=== PATIENT | female | born 1995 | race Caucasian/White ===

== ENCOUNTER 2018-07-25 19:15 | Emergency (ER) | payer BC ==
[2018-07-25 19:36] VITALS: BMI 21.9
[2018-07-25] MEDS ORDERED: ACETAMINOPHEN 500 MG TABLET (FP) PO ONE (20:14)
--- NOTE | 2018-07-25 20:14 | PDOC ---
History of Present Illness - General Chief Complaint: Cold Symptoms Stated Complaint: Cold Symptoms Time Seen by Provider: 07/25/18 20:13 History Source: Patient Exam Limitations: No Limitations - History of Present Illness Initial Comments: 07/25/18 20:32 HISTORY OF PRESENT ILLNESS: This is a 23-year-old woman without significant medical history of presents emergency departments with 1 day of fevers, myalgias , chills, sore throats, cough, nasal congestion. Patient is an employee at the [employer]. She also states her mother is an employee at this [employer] and has recently been diagnosed with influenza. No recent travel. PAST MEDICAL HISTORY: Denies past medical history SURGICAL HISTORY: Denies ALLERGIES: No known drug allergies REVIEW OF SYSTEMS General/Constitutional: +fever/chills. Denies weakness, weight change. HEENT: Denies change in vision. Denies ear pain or discharge. +sore throat. Cardiovascular: Denies chest pain or shortness of breath. Respiratory: Moist productive cough. No wheezing, or hemoptysis. Gastrointestinal: Denies nausea, vomiting, diarrhea or constipation. Denies rectal bleeding. Genitourinary: Denies dysuria, frequency, or change in urination. Musculoskeletal: Denies joint or muscle swelling. Denies neck or back pain. + myalgias Skin and breasts: Denies rash or easy bruising. Neurologic: Denies headache, vertigo, loss of consciousness, or loss of sensation. Psychiatric: Denies depression or anxiety. Endocrine: Denies increased thirst. Denies abnormal weight change. Hematologic/Lymphatic: Denies anemia, easy bleeding, or history of blood clots. Allergic/Immunologic: Denies hives or skin allergy. Denies latex allergy. PHYSICAL EXAM General Appearance: Well-appearing, appropriately dressed. No apparent distress , no intoxication. HEENT: EOMI, PERRLA, normal ENT inspection, normal voice, TMs normal, pharynx mildly erythematous. No conjunctival pallor. No photophobia, scleral icterus. Neck: Supple. Trachea midline. No tenderness, rigidity, carotid bruit, stridor , lymphadenopathy, or thyromegaly. Respiratory/Chest: Lungs CTAB. No shortness of breath, chest tenderness, respiratory distress, accessory muscle use. No crackles, rales, rhonchi, stridor , wheezing, dullness Cardiovascular: RRR. S1, S2. No JVD, murmur, bradycardia, tachycardia. Vascular Pulses: Dorsalis-Pedis (R): 2+, Dorsalis-Pedis (L): 2+ Gastrointestinal/Abdominal: Normal bowel sounds. Abdomen soft, non-distended. No tenderness or rebound tenderness. No organomegaly, pulsatile mass, guarding, hernia, hepatomegaly, splenomegaly. Lymphatic: No adenopathy, tenderness. Musculoskeletal/Extremities: Normal inspection. FROM of all extremities, normal capillary refill. Pelvis Stable. No CVA tenderness. No tenderness to extremities, pedal edema, swelling, erythema or deformity. Integumentary: Appropriate color, dry, warm. 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 Fully oriented, alert. Appropriate mood/affect. Motor strength 5/5. No appreciable EOM palsy, facial droop or sensory deficit. Past History - Past Medical History Allergies/Adverse Reactions: Allergies Allergy/AdvReac Type Severity Reaction Status Date / Time No Known Allergies Allergy Verified 07/25/18 19:36 Home Medications: Ambulatory Orders NK [No Known Home Medication] 07/25/18 COPD: No - Immunization History Immunization Up to Date: Yes - Suicide/Smoking/Psychosocial Hx Smoking History: Never smoked Hx Alcohol Use: No Substance Use Type: None *Physical Exam - Vital Signs Last Vital Signs Temp Pulse Resp BP Pulse Ox 102.5 F H 136 H 18 124/70 99 07/25/18 19:33 07/25/18 19:33 07/25/18 19:33 07/25/18 19:33 07/25/18 19:33 Medical Decision Making - Medical Decision Making 07/25/18 20:38 A/P: 23-year-old female 2 days of upper respiratory symptoms Influenza testing given sick contacts with influenza Tylenol 975 mg orally Reassess 07/25/18 20:48 Influenza testing is negative. 07/25/18 21:00 Reevaluation of vital signs prior to discharge reveals a heart rate of 234. Patient brought to the main ED for further evaluation. Sign out given to Joaquin Ireland for continued evaluation. *DC/Admit/Observation/Transfer - Discharge Dispostion Decision to Admit order: No - Referrals - Patient Instructions Additional Instructions: Rest, drink lots of fluids: Teas, water, soups, Pedialyte Saltwater gargles Steamy showers/seem to face break up mucus Avoid contact with others until fevers and cough resolved Lots of handwashing and good hygiene Continue [id number] medications for symptomatic relief Tylenol or Motrin for fever and pain Followup with private physician in one to 2 days as needed Return to emergency department for worsened symptoms, fevers, dehydration - Post Discharge Activity
[2018-07-25] MEDS ORDERED: ACETAMINOPHEN 325 MG TABLET (FP) ONE ×2 (20:16→21:41)
[2018-07-25] MEDS ORDERED: SODIUM CHLORIDE 0.9% 500 ML INFUS.BAG IV ONE (21:10)
--- NOTE | 2018-07-25 21:13 | PDOC ---
History of Present Illness - General Chief Complaint: Cold Symptoms Stated Complaint: Cold Symptoms Time Seen by Provider: 07/25/18 20:13 History Source: Patient Exam Limitations: No Limitations - History of Present Illness Initial Comments: 07/25/18 21:09 Patient's care is assumed from Florentino Gustafson when the patient has an onset of palpitations with HR measured up to 247 (on monitor and verified by palpation by JALIL Gustafson). The patient is a 23 YOF who p/w fever, chills, generalized malaise , and body aches in the setting of exposure to her mother who is known to be influenza positive. 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 She was treated in [facility], influenza swab was negative, and was given Tylenol. She began feeling palpitations about 10 minutes prior to being transferred back to the main ED here. She has never had these palpitations before. They have since resolved. Past History - Past Medical History Allergies/Adverse Reactions: Allergies Allergy/AdvReac Type Severity Reaction Status Date / Time No Known Allergies Allergy Verified 07/25/18 19:36 Home Medications: Ambulatory Orders NK [No Known Home Medication] 07/25/18 COPD: No - Immunization History Immunization Up to Date: Yes - Suicide/Smoking/Psychosocial Hx Smoking History: Never smoked Hx Alcohol Use: No Substance Use Type: None Review of Systems - Review of Systems Able to Perform ROS?: Yes Comments:: 07/25/18 21:19 GEN: fever, chills, generalized weakness, malaise, no unintentional weight change, loss of appetite, or difficulty sleeping HEENT: no ear pain, congestion, sore throat, rhinorrhea, nosebleed, vision change, or eye pain CV: palpitations, no chest pain, syncope, or exercise intolerance RESP: intermittent cough, no wheezing, or SOB GI: no nausea, vomiting, diarrhea, constipation, black/bloody stool, abdominal pain, or appetite change : no dysuria, hematuria, frequency, incontinence, retention, pruritis, bleeding, or discharge MSK: weakness, no joint swelling, limping, joint pain, or muscle pain NEURO: no headaches, seizures, or head trauma PSYCH: no insomnia, behavior change, or substance use SKIN: no jaundice, rashes, cuts, bruises, scars, or lesions *Physical Exam - Vital Signs Last Vital Signs Temp Pulse Resp BP Pulse Ox 98.7 F 247 H 18 124/70 99 07/25/18 20:57 07/25/18 20:57 07/25/18 19:33 07/25/18 19:33 07/25/18 19:33 07/25/18 21:10 GENERAL: healthy and fit and well-appearing young adult female in scrubs and with RN badge, nourished, A/Ox4, speaking in full sentences, answers questions appropriately, slightly uncomfortable appearing HEENT: PERRLA, EOMI, moist mucous membranes, no posterior pharyngeal erythema, no tonsillar swelling or exudates, no cervical lymphadenopathy NECK: No midline ttp, no spinal stepoff or deformity, full ROM, supple CARDIOVASCULAR: Rapid regular rate, HR 122 at the time of my exam, normal S1S2, no MGR, radial and DP pulses 2+ and symmetric, capillary refill <2 seconds, extremities warm and well-perfused LUNGS/RESPIRATORY: No respiratory distress, normal and symmetric chest movements during respirations, lungs CTA bilaterally, equal breath sounds, no cyanosis, no nail clubbing GI/ABDOMEN: Normal symmetric appearance, normoactive bowel sounds, soft, no tenderness to palpation, no midline pulsatile masses, no palpated organomegaly : No CVA tenderness, normal external appearance, no lesions BACK: No midline ttp or stepoff or deformity of thoracic or lumbar spine EXTREMITIES: distal pulses 2+, warm and well-perfused, no LE edema SKIN: Warm and dry, no pallor, no jaundice, no bruising, no rash, no skin breakdown, no cuts, no lesions NEUROLOGICAL: GCS 15, CN II-XII grossly intact, ambulating with normal gait, moving all extremities, 5/5 strength proximally and distally, no facial droop, no decreased sensation Heart Score/ECG Review #1 07/25/18 21:16 Sinus tachycardia, rate of 116, poor baseline but appears there is isolated TWI in III, no additional ST-T changes. ED Treatment Course - LABORATORY CBC & Chemistry Diagram: 07/25/18 21:00 07/25/18 21:00 - ADDITIONAL ORDERS Additional order review: 07/25/18 20:17 Influenza Types A,B Antigen - Final Nasopharyngeal Swab - Final - RADIOLOGY Radiology Studies Ordered: Category Date Time Status CHEST X-RAY PORTABLE* [RAD] Stat Radiology 07/25/18 21:07 Ordered - Medications Given in the ED: ED Medications Discontinued Medications Generic Name Dose Route Start Last Admin Trade Name Esther PRN Reason Stop Dose Admin Acetaminophen 975 mg 07/25/18 20:14 07/25/18 20:16 Tylenol - PO 07/25/18 20:15 975 mg ONCE ONE Administration Medical Decision Making - Medical Decision Making 07/25/18 21:49 Adult female Pt p/w palpitations from [facility] where she was being treated for fever, malaise, mother recently tested + for influenza . Initial Vital Signs Temp Pulse Resp BP Pulse Ox 102.5 F H 136 H 18 124/70 99 07/25/18 19:33 07/25/18 19:33 07/25/18 19:33 07/25/18 19:33 07/25/18 19:33 Repeat Vital Signs Temperature 98.7 F 07/25/18 20:57 Pulse Rate 247 H 07/25/18 20:57 Respiratory Rate 18 07/25/18 19:33 Blood Pressure 124/70 07/25/18 19:33 O2 Sat by Pulse Oximetry (%) 99 07/25/18 19:33 Exam: As noted in Physical Exam section. DDX IBNLT: tachyarrhythmia (e.g. SVT, re-entrant tachycardia, WPW, Brugada, long QT, AF/AFL w/ RVR, MAT, ventricular dysrhythmia), ischemia (ACS), structural heart condition (MVP, mitral stenosis, atrial enlargement, HOCM), anxiety/panic, hypoxia, anemia (e.g. hemorrhage from heavy menstruation, ruptured ectopic, etc), PE, PTX, bronchitis/PNA, sepsis/shock, tamponade, metabolic (e.g. DKA, hypoglycemia), thyroid condition, catecholamine surge ( e.g. pheochromocytoma), anxiety/panic disorder, medication effect, substance use , etc. W/U ordered: Monitor EKG CXR Labs as noted below EKG: Reviewed; results as noted in ECG Review section. TX ordered: IVF, has already been given Tylenol CXR: Nothing acute. Laboratory Tests 07/25/18 07/25/18 07/25/18 21:00 21:00 21:00 WBC 17.0 H RBC 4.50 Hgb 13.8 Hct 41.0 MCV 91.1 MCH 30.6 MCHC 33.6 RDW 13.0 Plt Count 228 MPV 11.2 H D Absolute Neuts (auto) 14.7 H Neutrophils % 86.2 H D Lymphocytes % 4.3 L D Monocytes % 8.3 Eosinophils % 0.9 D Basophils % 0.3 Nucleated RBC % 0 PT with INR 13.60 H INR 1.15 H Sodium Potassium Chloride Carbon Dioxide Anion Gap BUN Creatinine Creat Clearance w eGFR Random Glucose Calcium Total Bilirubin AST ALT Alkaline Phosphatase Troponin I Total Protein Albumin Serum , Qual Negative Urine Color Urine Appearance Urine pH Ur Specific Alta Urine Protein Urine Glucose (UA) Urine Ketones Urine Blood Urine Nitrite Urine Bilirubin Urine Urobilinogen Ur Leukocyte Esterase 07/25/18 07/25/18 21:00 22:30 WBC RBC Hgb Hct MCV MCH MCHC RDW Plt Count MPV Absolute Neuts (auto) Neutrophils % Lymphocytes % Monocytes % Eosinophils % Basophils % Nucleated RBC % PT with INR INR Sodium 137 Potassium 3.8 Chloride 101 Carbon Dioxide 25 Anion Gap 10 BUN 9 Creatinine 0.8 Creat Clearance w eGFR > 60 Random Glucose 83 Calcium 9.3 Total Bilirubin 0.6 AST 16 ALT 20 Alkaline Phosphatase 51 Troponin I < 0.02 Total Protein 7.9 Albumin 4.3 Serum , Qual Urine Color Straw Urine Appearance Clear Urine pH 6.0 Ur Specific Alta 1.003 L Urine Protein Negative Urine Glucose (UA) Negative Urine Ketones Negative Urine Blood Negative Urine Nitrite Negative Urine Bilirubin Negative Urine Urobilinogen Negative Ur Leukocyte Esterase Negative Reassessment: Patient states feels much better after Tylenol and IVF. She wants to go home, states would rather not stay overnight. 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 She will get repeat CBC tomorrow. 07/25/18 23:28 At this time HR is 98, Sat is 98% on RA, RR is 20, BP is 105/74. The Pt has gotten significant relief of symptoms while in the ED. She does not have EKG or other workup findings concerning for life-threatening arrhythmia. She is appropriate for discharge with close outpatient follow up. She is comfortable with this plan and will follow up with her primary care provider in 1-3 days. Specific return precautions are discussed and she will come back to the ER if necessary. *DC/Admit/Observation/Transfer Diagnosis at time of Disposition: Lightheaded, Sore throat, Cough Fever Qualifiers: Fever type: unspecified Qualified Code(s): R50.9 - Fever, unspecified - Discharge Dispostion Disposition: HOME Condition at time of disposition: Stable Decision to Admit order: No - Referrals - Patient Instructions Additional Instructions: YOU WERE SEEN IN THE ER FOR A FEVER AND FLU-LIKE SYMPTOMS. WE DID A FLU-SWAB WHICH WAS NEGATIVE, AND GAVE YOU TYLENOL. YOU HAD AN EPISODE OF PALPITATIONS WHILE YOU WERE HERE IN THE DEPARTMENT. WE DID LAB WORK ON YOUR BLOOD AND URINE, AN ELECTROCARDIOGRAM, AND A CHEST X-RAY, AND WE DID NOT FIND ANY CONCERNING ABNORMALITIES. YOUR SYMPTOMS IMPROVED WITH THE MEDICATIONS WE GAVE YOU IN THE ER. AFTER OUR ASSESSMENT, WE DO NOT BELIEVE YOU ARE HAVING A MEDICAL EMERGENCY AT THIS TIME, AND WE BELIEVE YOU ARE SAFE TO GO HOME. PLEASE FOLLOW UP WITH YOUR PRIMARY CARE PROVIDER TOMORROW AND GET A REPEAT CBC TO RE-CHECK YOUR WHITE BLOOD CELL COUNT, BECAUSE HERE IN THE ED TONIGHT IT WAS 17,000. CALL THEIR CLINIC SOON POSSIBLE, TELL THEM YOU WERE SEEN IN THE ER, AND TELL THEM YOU NEED AN APPOINTMENT. IF YOU HAVE ANY NEW OR WORSENING SYMPTOMS, ESPECIALLY WORSENING PALPITATIONS, CHEST DISCOMFORT, SHORTNESS OF BREATH, SWEATS, NAUSEA, LOSS OF CONSCIOUSNESS, OR OTHER SYMPTOMS, PLEASE COME BACK TO THE ER AT ANY TIME (24 HOURS A DAY). IF YOU ARE HAVING SEVERE OR LIFE THREATENING SYMPTOMS, OR SYMPTOMS THAT MAKE IT UNSAFE TO DRIVE OR HAVE SOMEONE DRIVE YOU, PLEASE CALL 911. Rest, drink lots of fluids: Teas, water, soups, Pedialyte Saltwater gargles Steamy showers/seem to face break up mucus Avoid contact with others until fevers and cough resolved Lots of handwashing and good hygiene Continue [id number] medications for symptomatic relief Tylenol or Motrin for fever and pain Followup with private physician in one to 2 days as needed Return to emergency department for worsened symptoms, fevers, dehydration - Post Discharge Activity Forms/Work/School Notes: Back to Work
--- NOTE | 2018-07-25 21:15 | PDOC ---
Attending Attestation - HPI HPI: 07/25/18 21:20 The patient is a 23 year old female, with no significant past medical history, who presents to the emergency department after initially being seen [facility] for fever of 102 F and tachycardia to the 120s. As per the provider in [facility], the patients fever was improved with Tylenol, tested negative for influenza today, and upon repeating vitals before discharge home, was found to be tachycardic to the 200s. The patient states she felt her heart racing at the time. She reports her mother was influenza positive. The patient denies chest pain, shortness of breath, headache and dizziness. The patient denies nausea, vomit, diarrhea and constipation. The patient denies dysuria, frequency, urgency and hematuria. Allergies: NKDA - Medical Decision Making 07/25/18 21:21 Documentation prepared by Edel Holley, acting as medical records coordinator for Lorin Mccormick MD <Edel Holley - Last Filed: 07/25/18 21:20> - Resident Resident Name: Swathi Campbell - ED Attending Attestation I have performed the following: I have examined & evaluated the patient, The case was reviewed & discussed with the resident, I agree w/resident's findings & plan, Exceptions are as noted - Physicial Exam PE: GENERAL: Awake, alert, and fully oriented, in no acute distress HEAD: No signs of trauma EYES: PERRLA, EOMI, sclera anicteric, conjunctiva clear ENT: Auricles normal inspection, hearing grossly normal, nares patent, oropharynx clear without exudates. Moist mucosa NECK: Normal ROM, supple, no lymphadenopathy, JVD, or masses LUNGS: Breath sounds equal, clear to auscultation bilaterally. No wheezes, and no crackles HEART: Tachycardic with regular rhythm., normal S1 and S2, no murmurs, rubs or gallops ABDOMEN: Soft, nontender, normoactive bowel sounds. No guarding, no rebound. No masses EXTREMITIES: Normal range of motion, no edema. No clubbing or cyanosis. No cords, erythema, or tenderness NEUROLOGICAL: Cranial nerves II through XII grossly intact. Normal speech, normal gait SKIN: Warm, Dry, normal turgor, no rashes or lesions noted. - Medical Decision Making Unclear whether HR was registering due to error with the machine (perhaps it was detecting both heart sounds and registered double the rate, as it would be unusual to have a HR that high and be conscious with a reasonable BP). Will monitor in main ED, send labs, give IV fluids. <Lorin Mccormick - Last Filed: 07/25/18 21:34>
[2018-07-25 22:28] LABS: BASO % 0.3 % (0-2.0); EOS % 0.9 % (0-4.5); HEMOGLOBIN 13.8 GM/dL (10.7-15.3); LYMPH % 4.3 % (8-40); MCH 30.6 pg (25.7-33.7); MCHC 33.6 g/dl (32.0-36.0); MEAN CELL VOLUME 91.1 fl (80-96); MEAN PLT VOLUME 11.2 fl (7.5-11.1); MONO % 8.3 % (3.8-10.2); NEUT % 86.2 % (42.8-82.8); PLATELET COUNT 228 K/MM3 (134-434)
[2018-07-25 22:42] LABS: INR 1.15 (0.83-1.09); PROTHROMBIN TIME (PATIENT) 13.6 SEC (9.7-13.0)
[2018-07-25 22:42] LABS: URINE APPEARANCE CLEAR; URINE BILIRUBIN NEGATIVE (<2.0 mg/dL); URINE COLOR STRAW; URINE GLUCOSE (UA) NEGATIVE (NEGATIVE); URINE KETONE NEGATIVE (NEGATIVE); URINE LEUK ESTERASE NEGATIVE (NEGATIVE); URINE NITRITE NEGATIVE (NEGATIVE); URINE PROTEIN NEGATIVE (NEGATIVE); URINE UROBILINOGEN NEGATIVE mg/dL (0.2-1.0)
[2018-07-25 22:44] LABS: ALBUMIN 4.3 g/dl (3.4-5.0); ALK PHOS 51 U/L (45-117); ANION GAP 10 MMOL/L (8-16); BILIRUBIN,TOTAL 0.6 mg/dL (0.2-1); BLOOD UREA NITROGEN 9 mg/dL (7-18); CALCIUM 9.3 mg/dL (8.5-10.1); CHLORIDE 101 mmol/L (98-107); CO2 25 mmol/L (21-32); CREATININE 0.8 mg/dL (0.55-1.3); GLUCOSE,RANDOM 83 mg/dL (74-106); POTASSIUM 3.8 mmol/L (3.5-5.1); SGOT/AST 16 U/L (15-37); SGPT/ALT 20 U/L (13-61); SODIUM 137 mmol/L (136-145); TOT PROT 7.9 g/dl (6.4-8.2)
[2018-07-25] MEDS ORDERED: IBUPROFEN 600 MG TABLET (FP) PO ONE ×2 (23:20→23:29)
[2018-07-25 23:40] VITALS: BP 120/54
[2018-07-26 01:04] VITALS: PULSE 68; TEMP 99.8
--- NOTE | 2018-07-26 10:15 | EKG ---
Test Reason : Blood Pressure : / mmHG Vent. Rate : 113 BPM Atrial Rate : 113 BPM P-R Int : 148 ms QRS Dur : 074 ms QT Int : 326 ms P-R-T Axes : 056 068 042 degrees QTc Int : 447 ms SINUS TACHYCARDIA POSSIBLE LEFT ATRIAL ENLARGEMENT BORDERLINE ECG NO PREVIOUS ECGS AVAILABLE Confirmed by AUGIE VIRK MD ([id number]) on 07/26/2018 10:14:46 AM Referred By: Confirmed By:AUGIE VIRK MD
== END 2018-07-26 00:26 | disposition home or self-care (01) ==
LOC: JERFT 19:15 → JER 19:15
DX: R50.9 Fever, unspecified (principal); R00.2 Palpitations; R42 Dizziness and giddiness
CPT/HCPCS: 36415; 71045-TC-FY; 80053; 81003; 84484; 84703; 85025; 85610; 87086; 87804; 93005; 93010; 99283-25